=== PATIENT | male | born 1965 | race Asian ===

== ENCOUNTER 2018-04-18 22:46 | Inpatient (IN) | payer OTHER ==
[2018-04-18] MEDS ORDERED: NACL 0.9% 3 ML SYG IV (23:30)
[2018-04-18] MEDS ORDERED: HYDROCODONE/APAP (5/325) TAB PO (23:30)
[2018-04-18] MEDS ORDERED: DOCUSATE SODIUM 100 MG CAP PO (23:30)
[2018-04-18] MEDS ORDERED: VANCOMYCIN IV PER PHARMACY XX (23:30)
[2018-04-18] MEDS ORDERED: ONDANSETRON 4 MG TAB PO (23:30)
[2018-04-18] MEDS ORDERED: ACETAMINOPHEN 325 MG TAB PO (23:30)
[2018-04-18] MEDS ORDERED: GLUCOSE GEL 15 GRAM TUBE BUCCAL (23:45)
[2018-04-18] MEDS ORDERED: GLUCOSE GEL 15 GRAM TUBE PO ×2 (23:45)
[2018-04-18] MEDS ORDERED: GLUCAGON 1 MG INJ IM (23:45)
[2018-04-18] MEDS ORDERED: DEXTROSE 50% 50 ML SYRINGE IV ×2 (23:45)
[2018-04-19] MEDS: LEVOFLOXACIN 500 MG TAB PO (01:17)
[2018-04-19] MEDS: VANCOMYCIN HCL 1.5 GM in SOD CHLORIDE 0.9% 250 ML IVPB (01:17)
[2018-04-19] MEDS: ACCU-CHEK XX ×3 (02:00→13:40)
[2018-04-19] MEDS: LEVOFLOXACIN 750 MG TABLET PO (05:21)
[2018-04-19 05:39] LABS: ADD MAN DIFF? NO
[2018-04-19 05:44] LABS: WHITE BLOOD COUNT 7.7 10^3/ul (4.8-10.8)
[2018-04-19 05:44] LABS: BASOPHIL # 0.1 10^3/ul (0.0-0.1); BASOPHILS % 0.7 % (0.0-2.0); EOSINOPHILS # 0.2 10^3/ul (0.0-0.5); EOSINOPHILS % 2.6 % (0.0-7.0); HEMATOCRIT 42.6 % (42.0-52.0); HEMOGLOBIN 14.1 g/dl (14.0-18.0); LYMPHOCYTES % 25.5 % (15.0-51.0); MEAN CORPUSCULAR HEMOGLOBIN 28.9 pg (29.0-33.0); MEAN CORPUSCULAR HGB CONC 33.1 g/dl (32.0-37.0); MEAN CORPUSCULAR VOLUME 87.3 fl (82.0-101.0); MEAN PLATELET VOLUME 11.5 fl (7.4-10.4); MONOCYTE # 0.7 10^3/ul (0.3-0.9); NEUTROPHIL # 4.8 10^3/ul (1.6-7.5); NEUTROPHILS % 62.1 % (39.0-77.0); PLATELET COUNT 178 10^3/UL (140-415); RED BLOOD COUNT 4.88 10^6/ul (4.70-6.10)
[2018-04-19 05:58] LABS: HEMOGLOBIN A1C 6.7 % (0-5.9)
[2018-04-19 06:14] LABS: ALANINE AMINOTRANSFERASE 45 IU/L (13-69); ALBUMIN 4.1 g/dl (3.3-4.9); ALBUMIN/GLOBULIN RATIO 1.13; ALKALINE PHOSPHATASE 58 IU/L (42-121); ANION GAP 9 (5-13); ASPARTATE AMINO TRANSFERASE 29 IU/L (15-46); BILIRUBIN,INDIRECT 0.5 mg/dl (0-1.1); BILIRUBIN,TOTAL 0.5 mg/dl (0.2-1.3); BLOOD UREA NITROGEN 14 mg/dl (7-20); CALCIUM 9.1 mg/dl (8.4-10.2); CARBON DIOXIDE 30 mmol/L (21-31); CHLORIDE 98 mmol/L (97-110); CHOL/HDL RATIO 3.3 RATIO; CHOLESTEROL 156 mg/dl (100-200); CREATININE 0.75 mg/dl (0.61-1.24); Estimated GFR > 60 mL/min (>60); GLUCOSE 134 mg/dl (70-220); HDL CHOLESTEROL 46 mg/dl (28-71); LDL CHOLESTEROL,CALCULATED 89 mg/dl; SODIUM 137 mmol/L (135-144); TOTAL PROTEIN 7.7 g/dl (6.1-8.1); TRIGLYCERIDES 106 mg/dl (0-149)
[2018-04-19] MEDS: INSULIN ASPART [NOVOLOG] 3 ML PEN SC ×2 (07:50→12:42)
[2018-04-19] MEDS: metFORMIN 850 MG TAB PO (08:32)
[2018-04-19] MEDS: FAMOTIDINE 20 MG TAB PO (08:33)
[2018-04-19] MEDS: HEPARIN 5,000 UNIT/1 ML VIAL SC (08:36)
[2018-04-19] MEDS: VANCOMYCIN HCL 1.25 GM in SOD CHLORIDE 0.9% 250 ML IVPB (13:00)
[2018-04-19] MEDS ORDERED: ATORVASTATIN 80 MG TAB PO (21:00)
== END 2018-04-19 16:00 | disposition home or self-care (01) | DRG 153 ==
LOC: MS1 22:46
PROVIDERS: Internal Medicine
DX: H66.92 Otitis media, unspecified, left ear (principal); E11.9 Type 2 diabetes mellitus without complications; H72.822 Total perforations of tympanic membrane, left ear; H70.12 Chronic mastoiditis, left ear; E78.5 Hyperlipidemia, unspecified; J32.0 Chronic maxillary sinusitis; H83.02 Labyrinthitis, left ear; I10 Essential (primary) hypertension; Z79.4 Long term (current) use of insulin; Z79.84 Long term (current) use of oral hypoglycemic drugs
CPT/HCPCS: 80053; 80061; 82962; 83036; 84443; 85025; 87040